=== PATIENT | female | born 1935 | race Caucasian/White ===

== ENCOUNTER 2022-11-05 15:35 | Emergency (ER) | payer MEDICARE, OTHER ==
[~2022-11-05] VITALS: Ht 170.2 cm; Wt 63.2 kg
[2022-11-05 15:48] VITALS: BP 110/51
[2022-11-05] MEDS ORDERED: sulfamethoxazole/trimethoprim DS (800/160mg) tablet PO ONE (18:30)
[2022-11-05] MEDS ORDERED: SULF1TAB49 PO (18:35)
== END 2022-11-05 18:56 | disposition home or self-care (01) ==
LOC: ER 15:36
DX: S61.511A Laceration without foreign body of right wrist, initial encounter (principal); L03.113 Cellulitis of right upper limb; Z88.5 Allergy status to narcotic agent; Z88.8 Allergy status to other drugs, medicaments and biological substances; W45.8XXA Other foreign body or object entering through skin, initial encounter; Y93.89 Activity, other specified; Y92.89 Other specified places as the place of occurrence of the external cause; Y99.8 Other external cause status
CPT/HCPCS: 99283